=== PATIENT | female | born 1955 | race Caucasian/White ===

== ENCOUNTER 2016-10-18 11:53 | Emergency (ER) | payer SELFPAY ==
[~2016-10-18] VITALS: Ht 157.5 cm; Wt 54.6 kg
[2016-10-18 12:02] VITALS: BP 118/78
== END 2016-10-18 13:33 | disposition home or self-care (01) ==
LOC: ED 11:53
DX: H66.92 Otitis media, unspecified, left ear (principal); F17.210 Nicotine dependence, cigarettes, uncomplicated

== ENCOUNTER 2017-02-18 09:01 | Emergency (ER) | payer OTHER ==
[2017-02-18 10:47] VITALS: BP 122/64
[2017-02-18 11:57] LABS: UA SPECIFIC GRAVITY 1.025 (1.005-1.035); microscopic required? YES; urine erythrocyte TRACE (NEGATIVE)
== END 2017-02-18 12:18 | disposition home or self-care (01) ==
LOC: ED 09:01
PROVIDERS: Emergency Medicine
DX: S00.86XA Insect bite (nonvenomous) of other part of head, initial encounter (principal); S40.261A Insect bite (nonvenomous) of right shoulder, initial encounter; S30.861A Insect bite (nonvenomous) of abdominal wall, initial encounter; L08.9 Local infection of the skin and subcutaneous tissue, unspecified; F17.210 Nicotine dependence, cigarettes, uncomplicated; Z88.5 Allergy status to narcotic agent; Z90.89 Acquired absence of other organs; Z71.6 Tobacco abuse counseling; W57.XXXA Bitten or stung by nonvenomous insect and other nonvenomous arthropods, initial encounter; Y93.89 Activity, other specified; Y92.89 Other specified places as the place of occurrence of the external cause; Y99.8 Other external cause status
CPT/HCPCS: 99406

== ENCOUNTER 2017-06-10 09:37 | Emergency (ER) | payer OTHER ==
[~2017-06-10] VITALS: Ht 160 cm; Wt 54.4 kg
[2017-06-10 10:02] VITALS: Ht 160 cm; Wt 54.4 kg
[2017-06-10 11:18] LABS: UA SPECIFIC GRAVITY >=1.030 (1.005-1.035); microscopic required? YES; urine erythrocyte NEGATIVE (NEGATIVE)
[2017-06-10 11:48] VITALS: BP 134/89
== END 2017-06-10 11:48 | disposition home or self-care (01) ==
LOC: ED 09:37
PROVIDERS: Emergency Medicine
DX: N39.0 Urinary tract infection, site not specified (principal); K59.00 Constipation, unspecified; R03.0 Elevated blood-pressure reading, without diagnosis of hypertension; F17.210 Nicotine dependence, cigarettes, uncomplicated; H54.40 Blindness, one eye, unspecified eye; Z90.89 Acquired absence of other organs; Z88.5 Allergy status to narcotic agent; Z98.890 Other specified postprocedural states

== ENCOUNTER 2018-09-06 12:55 | Emergency (ER) | payer OTHER ==
[~2018-09-06] VITALS: Ht 160 cm; Wt 55.1 kg
[2018-09-06 13:15] VITALS: Ht 160 cm; Wt 55.1 kg
[2018-09-06 16:05] VITALS: BP 128/70
== END 2018-09-06 16:15 | disposition home or self-care (01) ==
LOC: ED 12:55
DX: N39.0 Urinary tract infection, site not specified (principal); Z90.89 Acquired absence of other organs; Z98.42 Cataract extraction status, left eye; Z88.5 Allergy status to narcotic agent

== ENCOUNTER 2018-10-24 10:12 | Emergency (ER) | payer OTHER ==
[~2018-10-24] VITALS: Ht 160 cm; Wt 54.0 kg
[2018-10-24 10:29] VITALS: Ht 160 cm; Wt 54.0 kg
[2018-10-24 11:07] LABS: BASOPHIL % 0.6 % (0-2); PLATELET COUNT 364 x10^3mcL (130-400)
[2018-10-24 11:08] LABS: RED CELL DISTRIBUTION WIDTH 14.6 % (11.5-14.5)
[2018-10-24 11:24] LABS: CALCIUM 9.6 mg/dL (8.5-10.1); CARBON DIOXIDE 30.9 mmol/L (21-32); CHLORIDE SERUM 105 mmol/L (98-107); CREATININE SERUM 0.7 mg/dL (0.6-1.0); GFR1 > 60 mL/min; GLUCOSE SERUM 111 mg/dL (74-106); POTASSIUM SERUM 4.1 mmol/L (3.5-5.1); SODIUM SERUM 142 mmol/L (136-145)
[2018-10-24 11:28] LABS: ALBUMIN 3.8 g/dL (3.4-5.0); ALKALINE PHOSPHATASE 68 U/L (46-116); ALT/SGPT 27 U/L (14-59); AMYLASE 42 U/L (25-115); AST/SGOT 20 U/L (15-37); BILIRUBIN TOTAL 1.14 mg/dL (0.20-1.00); LIPASE 72 IU/L (73-393); TOTAL PROTEIN, SERUM 7.8 g/dL (6.4-8.2)
[2018-10-24 14:51] VITALS: BP 110/72
== END 2018-10-24 14:51 | disposition home or self-care (01) ==
LOC: ED 10:12
PROVIDERS: Specialist
DX: K80.50 Calculus of bile duct without cholangitis or cholecystitis without obstruction (principal); F17.210 Nicotine dependence, cigarettes, uncomplicated; Z88.5 Allergy status to narcotic agent; Z98.890 Other specified postprocedural states; Z90.89 Acquired absence of other organs
CPT/HCPCS: 36415; 99406; Q0092; Q0162